=== PATIENT | male | born 1995 | race Hispanic/Latino ===

== ENCOUNTER 2019-05-13 19:29 | Emergency (ER) | payer OTHER ==
[2019-05-13] MEDS ORDERED: LIDOCAINE 1% W/EPI 1:100,000 MDV 20 ML VIAL ONE (19:39)
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
[2019-05-13 20:51] VITALS: BP 121/85; TEMP 98.2; O2SAT 100
== END 2019-05-13 20:24 | disposition home or self-care (01) ==
LOC: ER 19:29
PROC: 0JQ00ZZ Repair Scalp Subcutaneous Tissue and Fascia, Open Approach (ICD-10-PCS; principal; 2019-05-13)
DX: S01.01XA Laceration without foreign body of scalp, initial encounter (principal); W45.8XXA Other foreign body or object entering through skin, initial encounter; Y93.9 Activity, unspecified; Y92.149 Unspecified place in prison as the place of occurrence of the external cause
CPT/HCPCS: 99284